=== PATIENT | female | born 1990 | race Caucasian/White ===

== ENCOUNTER 2025-01-21 16:20 | Emergency (ER) | payer BC ==
[~2025-01-21] VITALS: Ht 160 cm; Wt 56.7 kg
[2025-01-21 16:26] VITALS: TEMP 98.2
[2025-01-21 16:43] LABS: APPEARANCE,URINE CLEAR (CLEAR); BILIRUBIN,URINE Negative (NEGATIVE); BLOOD, URINE Small Ery/uL (NEGATIVE); COLOR,URINE YELLOW (YELLOW); KETONES,URINE Trace mg/dL (NEGATIVE); LEUKOCYTE ESTERASE ,URINE Trace (NEGATIVE); NITRITE, URINE NEGATIVE (NEGATIVE); PH,URINE 5.5 (5.0-8.0); PROTEIN,URINE Negative (NEGATIVE); UGLUCOSE Negative (NEGATIVE); UROBILINOGEN,URINE 0.2 EU/dL (0.2)
[2025-01-21 16:45] LABS: ADD URINE CULTURE NO; BACTERIA,URINE Few /HPF (None Seen); SQUAMOUS EPITHELIAL CELL,UR Few /HPF (None Seen)
[2025-01-21] MEDS: IV NS 0.9% 1,000 ML BAG IV ONE (16:45)
[2025-01-21] MEDS ORDERED: MORPHINE SULFATE INJ 4 MG/ML DISP.SYRIN ONE (16:46)
[2025-01-21] MEDS ORDERED: KETOROLAC TROMETHAMINE INJ 30 MG/ML VIAL ONE ×2 (16:46→18:11)
[2025-01-21] MEDS ORDERED: ONDANSETRON HCL/PF 4 MG/2 ML VIAL ONE (16:46)
[2025-01-21 16:47] LABS: BASOPHILS # (AUTO) 0.1 K/uL (0.0-0.2); BASOPHILS % (AUTO) 0.5 % (0.0-2.0); EOSINOPHILS # (AUTO) 0.1 K/uL (0.0-0.7); EOSINOPHILS % (AUTO) 1.1 % (0.0-6.0); HEMATOCRIT 40 % (33-45); HEMOGLOBIN 12.4 g/dL (11.5-14.8); LYMPHOCYTES # (AUTO) 2.2 K/uL (0.8-4.8); LYMPHOCYTES % (AUTO) 16.7 % (20.0-44.0); MEAN CORPUSCULAR HEMOGLOBIN 24 PG (26.0-33.0); MEAN CORPUSCULAR HGB CONC 31 g/dl (31.0-36.0); MEAN CORPUSCULAR VOLUME 76 fL (82-100); MONOCYTES # (AUTO) 0.5 K/uL (0.1-1.30); MONOCYTES % (AUTO) 3.8 % (2.0-12.0); NEUTROPHILS # (AUTO) 10.2 K/uL (1.8-8.9); NEUTROPHILS % (AUTO) 77.9 % (43.0-81.0); PLATELET COUNT (AUTO) 401 K/uL (150-450); RED BLOOD CELL COUNT(AUTO) 5.18 MIL/uL (4.0-5.2); RED CELL DISTRIBUTION WIDTH 21.1 % (11.5-15.0); WHITE BLOOD COUNT (AUTO) 13.1 K/uL (4.3-11.0)
[2025-01-21] MEDS: ONDANSETRON HCL/PF 4 MG/2 ML VIAL IVP ONE (16:52)
[2025-01-21] MEDS: MORPHINE SULFATE INJ 2 MG/ML DISP.SYRIN IV ONE (16:53)
[2025-01-21 16:56] LABS: CALCIUM, SERUM 9.2 mg/dL (8.5-10.1); CREATININE 0.9 mg/dL (0.6-1.3); POTASSIUM 3.7 mmol/L (3.5-5.1)
[2025-01-21] MEDS: KETOROLAC TROMETHAMINE 15 MG/ML VIAL IV ONE (16:58)
[2025-01-21 17:01] LABS: ALBUMIN 3.6 g/dL (3.4-5.0); BILIRUBIN,DIRECT 0.1 mg/dL (0.0-0.2); BILIRUBIN,TOTAL 0.3 mg/dL (0.2-1.0); TOTAL PROTEIN, SERUM 8.1 g/dL (6.4-8.2)
[2025-01-21] MEDS ORDERED: IBUP-1490 PO (18:05)
[2025-01-21] MEDS ORDERED: TAMS-12 PO (18:05)
[2025-01-21] MEDS ORDERED: HYDR-3972 PO (18:05)
[2025-01-21] MEDS ORDERED: TAMSULOSIN 0.4 MG CAP.SR.24H ONE (18:11)
[2025-01-21] MEDS: TAMSULOSIN 0.4 MG CAP.SR.24H PO ONE (18:15)
[2025-01-21] MEDS: KETOROLAC TROMETHAMINE INJ 30 MG/ML VIAL IV ONE (18:15)
[2025-01-21 18:34] VITALS: BP 109/65; O2SAT 99
== END 2025-01-21 18:33 | disposition home or self-care (01) ==
LOC: ER 16:26
DX: N20.2 Calculus of kidney with calculus of ureter (principal)
CPT/HCPCS: 99285; 74176; 96374; 96375; 71045; 96361; 96376; 85025; 80048; 83690; 80076; 81001; 36415; J1885 ×2; J2270; J2405; J7030